=== PATIENT | female | born 1995 | race African-American/Black ===

== ENCOUNTER 2019-04-07 10:48 | Emergency (ER) | payer MEDICAID ==
[~2019-04-07] VITALS: Ht 157.5 cm; Wt 50.0 kg
[2019-04-07 11:02] VITALS: BP 108/74
== END 2019-04-07 13:08 | disposition left against medical advice (07) ==
LOC: ER 11:02
DX: S49.90XA Unspecified injury of shoulder and upper arm, unspecified arm, initial encounter (principal); Z53.21 Procedure and treatment not carried out due to patient leaving prior to being seen by health care provider; X58.XXXA Exposure to other specified factors, initial encounter; Y93.89 Activity, other specified; Y92.89 Other specified places as the place of occurrence of the external cause; Y99.8 Other external cause status